=== PATIENT | female | born 1955 | race Caucasian/White ===

== ENCOUNTER 2019-03-14 16:00 | Emergency (ER) | payer MEDICAID, OTHER ==
[~2019-03-14] VITALS: Ht 157.5 cm; Wt 63.5 kg
[2019-03-14 16:00] VITALS: BP_SYST 156
[2019-03-14] MEDS ORDERED: MAG HYDROX/AL HYDROX/SIMETH 30 ML, DICYCLOMINE HCL 20 MG, LIDOCAINE VISCOUS 2% 15ML (PO... PO ONE ×3 (16:45)
[2019-03-14] MEDS ORDERED: KETOROLAC TROMETHAMINE 30 MG VIAL IM ONE (16:45)
[2019-03-14] MEDS ORDERED: ONDANSETRON 4 MG ODT TAB PO ONE (16:45)
[2019-03-14 17:07] LABS: BASOPHILS # (AUTO) 0.1 K/uL (0.0-0.2); BASOPHILS % (AUTO) 0.9 % (0.0-2.0); EOSINOPHILS % (AUTO) 0.7 % (0.0-4.0); HEMOGLOBIN 12.2 g/dL (12.0-16.0); LYMPHOCYTES # (AUTO) 1.7 K/uL (1.0-5.5); LYMPHOCYTES % (AUTO) 29.1 % (20.5-51.5); MEAN CORPUSCULAR HEMOGLOBIN 30 pg (27-31); MEAN CORPUSCULAR HGB CONC 33 % (32-36); MEAN CORPUSCULAR VOLUME 90 fL (79.0-98.0); MONOCYTES # (AUTO) 0.3 K/uL (0.0-1.0); NEUTROPHILS # (AUTO) 3.7 K/uL (1.8-7.7); NEUTROPHILS % (AUTO) 63.3 % (40.0-70.0); RED BLOOD CELL COUNT(AUTO) 4.09 MIL/uL (4.2-6.2); RED CELL DISTRIBUTION WIDTH 16.8 % (9.0-15.0); WHITE BLOOD COUNT (AUTO) 5.8 K/uL (4.8-10.8)
[2019-03-14 17:25] LABS: CALCIUM 8.5 mg/dL (8.4-11.0); CREATININE 1.04 mg/dL (0.55-1.30)
[2019-03-14 17:31] LABS: ALBUMIN 3.3 g/dL (3.4-4.8)
[2019-03-14 17:34] LABS: POTASSIUM 2.9 mmol/L (3.5-5.1)
[2019-03-14] MEDS ORDERED: POTASSIUM CHLORIDE 20 MEQ TAB.PRT.SR PO ONE (17:45)
[2019-03-14 17:48] LABS: PLATELET COUNT (AUTO) 95 K/uL (130-430)
[2019-03-14 17:58] VITALS: BP_SYST 150
[2019-03-14 18:20] LABS: BARBITURATE, URINE NEGATIVE (NEG <=200); BENZODIAZEPINE, URINE NEGATIVE (NEG <=150); CANNABINOID, URINE NEGATIVE (NEG <=50); COCAINE, URINE NEGATIVE (NEG <=150); METHAMPHETAMINES SCREEN,URINE NEGATIVE (NEG <=500); OPIATE, URINE NEGATIVE (NEG <=100); PHENCYCLIDINE SCREEN,URINE NEGATIVE (NEG <=25); UR TRICYCLIC ANTIDEPRESSANTS NEGATIVE (NEG <=300); URINE AMPHETAMINE NEGATIVE (NEG <=500); URINE METHADONE NEGATIVE (NEG <=200); URINE OXYCODONE SCREEN NEGATIVE (NEG <=100); URINE PROPOXYPHENE SCREEN NEGATIVE (NEG <=300)
== END 2019-03-14 17:57 | disposition home or self-care (01) ==
LOC: SED 16:00
DX: F15.10 Other stimulant abuse, uncomplicated (principal); F41.9 Anxiety disorder, unspecified; E87.6 Hypokalemia
CPT/HCPCS: 36415; 80053; 80307; 83690; 85025; 96372; 99284; J1885; J2001; Q0162